=== PATIENT | male | born 1985 | race Caucasian/White ===

== ENCOUNTER 2022-12-28 09:11 | Emergency (ER) | payer OTHER, SELFPAY ==
[2022-12-28 09:25] VITALS: BP 157/88; PULSE 85; RESP 18; TEMP 36.6; O2SAT 97; BMI 38.5
--- NOTE | 2022-12-28 10:03 | ED_ITS ---
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 He has had some pain around the armpit as well he has felt a little flu-like. He has had no chronic health problems he has been generally healthy, he states he has a rash with penicillin but he has taken penicillin before and done okay, he denies shortness of breath chest pain neurologic complaints. Related Data Home Medications Medication Instructions Recorded Confirmed No Known Home Medications 12/28/22 12/28/22 Allergies Allergy/AdvReac Type Severity Reaction Status Date / Time codeine Allergy Intermediate Rash Verified 12/28/22 09:22 Penicillins Allergy Intermediate Rash Verified 12/28/22 09:22 Review of Systems Status of ROS: Reports: 6 or more systems reviewed and unremarkable except as noted in History and below PFSH [facility] Social History Smoking Status: Unknown if ever smoked How often do you have a drink containing alcohol: never How often do you have six or more drinks on one occasion: Never AUDIT-C Alcohol total score: 0 Non-prescribed substance use: denies use service: Yes Exam Narrative: Exam Narrative: Objective: Vital signs look within normal limits except slightly elevated systolic pressure, O2 sat 97%, temperature is 98? HEENT is unremarkable neurologic grossly nonfocal Next left arm pit area shows a slightly draining reddened area about size of 50 cent piece consistent with either a bug bite, spider bite, or ingrown hair. There is no ascending or descending cellulitic change or lymphangitic spread of infection. Patient is noncyanotic breathing normally takes speaks in normal sentences, has not had any cough or chest pain as mention Const: Vital Signs, click to edit/add: Vital Signs - 24 hr 12/28/22 09:25 Temperature 98 F Pulse Rate [Pulse Oximeter] 85 Respiratory Rate 18 Blood Pressure [Ri ght Upper Arm] 157/88 H Pulse Oximetry 97 Oxygen Delivery Me thod Room Air Course Vital Signs Vital signs: Initial Vital Signs Temperature 98 F 12/28/22 09:25 Temperature Source Temporal Artery Scan 12/28/22 09:25 Pulse Rate 85 12/28/22 09:25 Pulse Rhythm Regular 12/28/22 09:25 Pulse Strength 3+ Normal 12/28/22 09:25 Respiratory Rate 18 12/28/22 09:25 Blood Pressure 157/88 H 12/28/22 09:25 Blood Pressure Mean 111 H 12/28/22 09:25 Blood Pressure Position Sitting 12/28/22 09:25 Pulse Oximetry 97 12/28/22 09:25 Oxygen Delivery Method Room Air 12/28/22 09:25 Vital Signs Temperature 98 F 12/28/22 09:25 Pulse Rate 85 12/28/22 09:25 Respiratory Rate 18 12/28/22 09:25 Blood Pressure 157/88 H 12/28/22 09:25 Pulse Oximetry 97 12/28/22 09:25 Oxygen Delivery Method Room Air 12/28/22 09:25 Temperature 98 F 12/28/22 09:25 Pulse Rate 85 12/28/22 09:25 Respiratory Rate 18 12/28/22 09:25 Blood Pressure 157/88 H 12/28/22 09:25 Pulse Oximetry 97 12/28/22 09:25 Oxygen Delivery Method Room Air 12/28/22 09:25 Medical Decision Making MDM Narrative Medical decision making narrative: 37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 Certainly could be a insect bite, could be ingrown hair. At this point he has some cellulitic change it has drained some do not think any opening needs to be done, do not feel any abscess or fluctuance. I think he can get a dose of Rocephin here will start him on doxycycline 100 mg b.i.d. times 14 days, Toradol as needed for discomfort and will also check a COVID/influenza/RSV testing: Back with the results. Because he does not know his last tetanus shot will given updated Tdap shot. Return as needed. Lab Data Labs: Lab Results 12/28/22 Range/Units 10:16 SARS-CoV-2 (PCR) Negative SARS-CoV-2 (Negative) Influenza Type A (PCR) Negative PCR FLU A (Negative) Influenza Type B (PCR) Negative PCR FLU B (Negative) RSV (PCR) Negative PCR RSV (Negative) Discharge Plan Discharge Clinical Impression: Cellulitis Patient Disposition: Home, Self-Care Condition: Stable Additional Instructions: Antibiotic and pain medicine as prescribed, may use Tylenol but do not use additional ibuprofen or Aleve as Toradol is in the same medication class. He may drive with this medication. Recommend warm packs to the armpit as needed or showers couple times a day if able. Return as needed, will give you an updated tetanus shot again today as well. We will call with your swab results. Activity Level: Light activity Discharge Diet: Regular Prescriptions: No Action No Known Home Medications Stand Alone Forms: N42 Info Instructions
[2022-12-28] MEDS: cefTRIAXone 1 GM VIAL IM (10:15)
[2022-12-28] MEDS: TETANUS/DIPHTH/PERTUSSIS 0.5 ML SYRINGE IM (10:15)
[2022-12-28] MEDS: KETOROLAC 10 MG TABLET PO (10:15)
[2022-12-28] MEDS: LIDOCAINE 1% 5 ml (pf) 5 ML VIAL 2.1 ML IM (10:23)
[2022-12-28 11:02] LABS: PCR FLU A Negative PCR FLU A (Negative); PCR FLU B Negative PCR FLU B (Negative); PCR RSV Negative PCR RSV (Negative)
[2022-12-28 11:05] LABS: SARS PCR* Negative SARS-CoV-2 (Negative)
--- NOTE | 2022-12-28 11:08 | ED.NURSE ---
This curriculum writer called pt and notified him that triple swab done today was negative. Pt verbalized understanding and had no further questions.
== END 2022-12-28 10:20 | disposition home or self-care (01) ==
PROVIDERS: Emergency Provider Family Medicine
DX: L03.319 Cellulitis of trunk, unspecified (principal)
CPT/HCPCS: 87631; 90471; 90715; 96372; 99283; 99284; A9270; J0696